=== PATIENT | male | born 2000 | race Two or more races ===

== ENCOUNTER 2024-01-12 13:48 | Emergency (ER) | payer SELFPAY ==
[2024-01-12 13:56] VITALS: BP 130/83; PULSE 79; TEMP 36.8; O2SAT 98; BMI 26.4
--- NOTE | 2024-01-12 14:00 | XR_ITS ---
[facility] [id number] Patient Name: ROMÁN LAUREN MRN: [id number] date: 2000 Sex: M Assigned Patient Location: ED.MAIN Current Patient Location: ER Accession/Order Number: [id number] Exam Date: 01/12/2024 14:12 Report Date: 01/12/2024 14:55 At the request of: BRIGITTE BROWNE Procedure: XR toe RT min 2V EXAM: XR toe RT min 2V HISTORY: pain, injury injury a month ago with increasing soft tissue abnormality involving the nail COMPARISON: None. TECHNIQUE: AP, oblique, lateral x-ray right great toe. FINDINGS: No fracture or healing fracture or bony erosion seen. Normal joints. No foreign body. Abnormal appearance distal soft tissues involving the nail. XR/XR toe RT min 2V IMPRESSION: Negative for fracture. Electronically authenticated by: JANNY NATHAN Date: 01/12/2024 14:55
--- NOTE | 2024-01-12 15:23 | ED_ITS ---
HPI HPI - Extremity Injury (Lower) General Chief Complaint: Extremity Injury, Lower Stated Complaint: RIGHT FOOT TOE PAIN Time Seen by Provider: 01/12/24 13:59 Source: patient Mode of arrival: walk-in Limitations: no limitations History of Present Illness HPI Narrative: Patient is a 23-year-old male presents to the ER with concerns of right great toenail injury. Patient states he stubbed his toe over a month ago, and that it was black and blue. Patient wears steel toe boots at work. Notes he can feel nail from the base bothering him in his work boots. He denies any bleeding or drainage at this time. States it was bleeding with the initial injury but stopped. Patient appears in no distress. Related Data Home Medications ?Medication ?Instructions ?Recorded ?Confirmed No Known Home Medications 01/12/24 01/12/24 Allergies Allergy/AdvReac Type Severity Reaction Status Date / Time No Known Drug Allergies Allergy Verified 01/12/24 13:55 Opioid HPI Opioid Management Most Recent Pain and Opioid Data: No Data to Display Review of Systems ROS Constitutional Denies: fever or chills Eyes Denies: change in vision Ears, nose, mouth, and throat Denies: throat pain or neck pain Cardiovascular Denies: chest pain, palpitations or edema Respiratory Denies: shortness of breath, cough or wheezing Gastrointestinal Denies: abdominal pain or nausea Genitourinary Denies: painful urination Musculoskeletal Denies: back pain, neck pain or extremity pain Integumentary/Breast Denies: rash, itching or redness Neurological Denies: headache Exam Narrative Exam Narrative: Nurses notes and vital signs reviewed and patient is not hypoxic. General: The patient appears well and in no apparent distress. Patient is resting comfortably on cart. Skin: Warm, dry, no pallor noted. no evidence of rash. Head: Normocephalic, atraumatic Ears, Nose, Mouth, and Throat: Exam unremarkable Cardiovascular: Regular Rate and Rhythm Respiratory: Patient is in no distress, no accessory muscle use, lungs are clear to auscultation, no wheezing, rales or rhonchi. Chest Wall: no tenderness Back: non-tender, no CVA tenderness Musculoskeletal: normal ROM, no tenderness, no swelling, right great toenail is near completely avulsed, the medial aspect has minimal skin attachment at the cuticle with no definitive attachment. There is approximately 1/4 inch of new nail growth noted underneath that appears symmetric. No evidence of swelling, tenderness more noted for sensitivity to the nailbed but skin is fully intact and no acute injury is noted. Patient does have full mobility of the great toe and no tenderness with palpation of the foot. Neurological: A&O x4 Psychiatric: Cooperative Constitutional Vital Signs, click to edit/add: Last Vital Signs Temp 98.2 F 01/12/24 13:56 Pulse 79 01/12/24 13:56 Resp 18 01/12/24 13:56 BP 130/83 01/12/24 13:56 Pulse Ox 98 01/12/24 13:56 Course Vital Signs Vital signs: Vital Signs Temperature 98.2 F 01/12/24 13:56 Pulse Rate 79 01/12/24 13:56 Respiratory Rate 18 01/12/24 13:56 Blood Pressure 130/83 01/12/24 13:56 Pulse Oximetry 98 01/12/24 13:56 Temperature 98.2 F 01/12/24 13:56 Pulse Rate 79 01/12/24 13:56 Respiratory Rate 18 01/12/24 13:56 Blood Pressure 130/83 01/12/24 13:56 Pulse Oximetry 98 01/12/24 13:56 MDM - Extremity Injury (Lower) MDM Narrative Medical decision making narrative: Presents with remote nail injury to the great toe, x-ray without evidence of fracture. We discussed treatment options to remove the toenail which is hanging by a piece of dry skin. We discussed that local anesthetic may be more painful than simply removing the dry skin that is still holding the nail in place. Patient agreeable to attempt without injection of local anesthetic given trade- off of pain from injection versus procedure. The nail was easily removed, there was no bleeding. Patient has symmetric nail growth underneath and the nailbed is intact. We discussed sensitivity to the area without toenail and that full nail growth can be upwards of a year. He is given local podiatry for follow-up. He may be off work tomorrow but is recommended to wear good socks in his boots to help with moisture control. He does not need to apply anything topical as the area is well-healed. Patient verbalized understanding The patient is to followup with primary care physician podiatry in next 2-3 days or to return to the emergency department should any of the signs or symptoms worsen or new symptoms develop. Patient had questions answered. The patient ag immanuel with the following Diagnosis and Treatment plan and the patient will be discharged home. SUPERVISED APC VISIT, PHYSICIAN ATTESTATION: Based on the medical record the care appears appropriate. ? Imaging Data toe xray: Radiologist's impression: ITS Impressions Toe X-Ray 01/12/24 14:00 IMPRESSION: Negative for fracture. Electronically authenticated by: JANNY NATHAN Date: 01/12/2024 14:55 Discharge Plan Discharge Stand Alone Forms: Portal Instructions Chief Complaint: Extremity Injury, Lower Clinical Impression: Nail avulsion, toe Patient Disposition: Home, Self-Care Time of Disposition Decision: 15:23 Condition: Good Prescriptions / Home Meds: No Action No Known Home Medications Print Language: Liberian Instructions: Nail Removal (ED) Referrals: Physician,Non-Staff, MD [Primary Care Provider] - 1 week Brian Gale DPM [Physician] - 1 week Discharge Date/Time: 01/12/24 15:41
[2024-01-12 15:41] VITALS: PULSE 67; O2SAT 99
== END 2024-01-12 15:41 | disposition home or self-care (01) ==
PROVIDERS: Emergency Provider Student in an Organized Health Care Education/Training Program
DX: S91.201A Unspecified open wound of right great toe with damage to nail, initial encounter (principal); W22.8XXA Striking against or struck by other objects, initial encounter
CPT/HCPCS: 73660; 99283